=== PATIENT | female | born 1975 | race Caucasian/White ===

== ENCOUNTER 2018-03-18 07:54 | Outpatient (RCR) | payer BC | END 2018-06-16 | disposition home or self-care (01) | LOC: CARD 07:54 | PROVIDERS: ATTEND Physician Assistant | DX: R00.2 Palpitations (principal); R42 Dizziness and giddiness | CPT/HCPCS: 93225; 93226 ==

== ENCOUNTER → 2018-04-17 | Outpatient (CLI) | payer BC ==
[2018-04-17 15:46] VITALS: BP 123/77
--- NOTE | 2018-04-17 15:46 | Cardiology Stress Test Report ---
Stress Test Report Date of Procedure/Referring: Date of Procedure: Apr 17, 2018 PCP Jarek Romero MD Admitting Physician Trever Mario MD Indications: chest pain Baseline Heart Rate: 95 Baseline Blood Pressure: Blood Pressure Systolic: 123 Blood Pressure Diastolic: 77 Baseline EKG: Baseline EKG: Normal Sinus Rhythm Summary/Conclusion: Summary: In summary, the patient started exercising with a baseline heart rate, blood pressure and EKG mentioned above Patient was able to exercise for a total of 6 minutes on Javier protocol, 7.3 METs Maximum heart rate 168 Maximum blood pressure 207/76 Stress EKG Minimal nondiagnostic changes Recovery EKG Return to baseline Conclusion: 1. Good exercise tolerance for a total of 6 minutes on Javier protocol, 7.3 METs , achieving 94 percent of maximum expected heart rate 2. Minimal nondiagnostic EKG changes with exercise returned to baseline during recovery 3. No arrhythmia was noted 4. Hypertensive response to exercise JAREK ROMERO MD Apr 17, 2018 15:46
== END ==
LOC: CARD 13:03
PROVIDERS: ATTEND Internal Medicine Cardiovascular Disease
DX: R07.89 Other chest pain (principal); I47.1 Supraventricular tachycardia; I49.3 Ventricular premature depolarization; I49.1 Atrial premature depolarization; Z83.438 Family history of other disorder of lipoprotein metabolism and other lipidemia
CPT/HCPCS: 93017

== ENCOUNTER 2018-04-30 20:38 | Outpatient (CLI) | payer BC | END 2018-05-01 06:10 | disposition home or self-care (01) | LOC: SLEEP 20:38 | PROVIDERS: ATTEND Internal Medicine Cardiovascular Disease | DX: G47.33 Obstructive sleep apnea (adult) (pediatric) (principal) | CPT/HCPCS: 95810 ==

== ENCOUNTER → 2018-12-27 | Outpatient (CLI) | payer BC ==
--- NOTE | 2018-12-27 15:18 | Diagnostic Imaging Report ---
PROCEDURE: US Non-ob pelvis comp/trans. INDICATION: Pelvic pain. TECHNIQUE: Multiple real time mccloud scale sonographic images were obtained of the pelvis transabdominally and endovaginally. CORRELATION STUDY: None. FINDINGS: UTERUS: 10.6 x 6.9 x 5.8 cm. The uterus appears unremarkable. ENDOMETRIUM: 11 mm. There is somewhat heterogeneous echotexture about the endometrium, nonspecific. RIGHT OVARY: 3.1 x 3.7 x 2.1 cm. LEFT OVARY: 3.2 x 2.4 x 2.3 cm. A few scattered small follicles are present. No definitive dominant concerning mass. Normal blood flow to the ovaries. No significant free pelvic fluid. IMPRESSION: 1. Endometrial thickness is within normal limits for a premenopausal patient. However, this has a somewhat heterogeneous echotexture. Consideration for follow-up imaging in a different phase of the menstrual cycle would be recommended. 2. Likely physiologic ovarian follicles. Dictated by: Dictated on workstation # [id number]
== END ==
LOC: RAD 10:31
PROVIDERS: ATTEND Anesthesiology Pain Medicine
DX: R10.2 Pelvic and perineal pain (principal)
CPT/HCPCS: 76830; 76856

== ENCOUNTER → 2020-01-08 | Outpatient (CLI) | payer BC | LOC: LABNPT 05:19 | PROVIDERS: ATTEND Internal Medicine | DX: J02.9 Acute pharyngitis, unspecified (principal); Z20.828 Contact with and (suspected) exposure to other viral communicable diseases | CPT/HCPCS: 87635 ==

== ENCOUNTER → 2020-01-19 | Outpatient (CLI) | payer BC | LOC: LABNPT 08:04 | PROVIDERS: ATTEND Internal Medicine | DX: Z20.828 Contact with and (suspected) exposure to other viral communicable diseases (principal) | CPT/HCPCS: 87635 ==

== ENCOUNTER → 2020-10-08 | Outpatient (CLI) | payer BC ==
--- NOTE | 2020-10-08 11:40 | Diagnostic Imaging Report ---
PROCEDURE: Pelvic comp/transvaginal sonogram. TECHNIQUE: Complete transabdominal and transvaginal pelvic ultrasound was performed. In addition, limited pelvic Doppler was performed. INDICATION: Secondary dysmenorrhea. The uterus measures 10.3 x 6.3 x 9.4 cm. Endometrium is 7 mm in thickness. Diffuse myometrial heterogeneity is seen. There appear to be multiple fibroids present. Probable fibroid in the right fundal region measures 2.2 x 2.4 cm. Left-sided fundal fibroid measures approximate 4 cm in diameter. Left uterine body fibroid is 1.8 cm. Right ovary measures 3.9 x 2.7 x 2.3 cm and left ovary measures 3.6 x 2.2 x 3.1 cm. There is blood flow to both ovaries. No adnexal mass or free fluid is detected. IMPRESSION: 1. Fibroid uterus. The study is otherwise unremarkable. Dictated by: Dictated on workstation # [id number]
--- NOTE | 2020-10-11 09:01 | Diagnostic Imaging Report ---
INDICATION: Routine screening. COMPARISON: No prior mammograms are available for comparison. TECHNIQUE: 2D and 3D bilateral screening mammography was performed with CAD. FINDINGS: Both breasts are heterogeneously dense, limiting the sensitivity of mammography. There are benign calcifications in the right breast. No mass or malignant-appearing microcalcifications are seen. The axillae are unremarkable. IMPRESSION: No mammographic features suspicious for malignancy are identified. ACR BI-RADS Category 2: Benign findings. Result letter will be mailed to the patient. Note: At least 10% of breast cancer is not imaged by mammography. Dictated by: Dictated on workstation # [id number]
== END ==
LOC: RAD 10:01
PROVIDERS: ATTEND Obstetrics & Gynecology
DX: Z12.31 Encounter for screening mammogram for malignant neoplasm of breast (principal); D25.9 Leiomyoma of uterus, unspecified
CPT/HCPCS: 76830; 76856; 77063; 77067

== ENCOUNTER → 2021-10-10 | Outpatient (CLI) | payer BC ==
--- NOTE | 2021-10-10 12:56 | Diagnostic Imaging Report ---
INDICATION: Routine screening. COMPARISON: 10/08/2020. TECHNIQUE: 2D and 3D bilateral screening mammography was performed with CAD. FINDINGS: Both breasts are heterogeneously dense, limiting the sensitivity of mammography. A lobulated density has developed in the upper and outer aspect of the left breast. This could potentially represent a cyst. Additional views are recommended. The right breast is unremarkable. No malignant-appearing microcalcifications are seen. The axillae are unremarkable. IMPRESSION: Left breast density. Additional views are recommended for further evaluation. If this persists, ultrasound will be necessary as well. ACR BI-RADS Category 0: Incomplete. (Needs additional imaging evaluation). Result letter will be mailed to the patient. Note: At least 10% of breast cancer is not imaged by mammography. Dictated by: Dictated on workstation # [id number]
== END ==
LOC: RAD 11:15
PROVIDERS: ATTEND Obstetrics & Gynecology
DX: Z12.31 Encounter for screening mammogram for malignant neoplasm of breast (principal); N64.89 Other specified disorders of breast
CPT/HCPCS: 77063; 77067

== ENCOUNTER → 2021-10-13 | Outpatient (CLI) | payer BC ==
--- NOTE | 2021-10-13 15:35 | Diagnostic Imaging Report ---
INDICATION: Left breast density. Patient presents for additional views. Correlation is made to screening study from 10/10/2021 Unilateral left 2-D and 3-D diagnostic mammography was performed with CAD. This includes spot compression CC and ML views as well as conventional 90 degree lateral views. Additional views show persistent lobulated density in the upper outer left breast approximately 8 cm from the nipple. This may represent a cluster of cysts. No other masses are seen. IMPRESSION: Lobulated density upper outer left breast 8 cm from the nipple. Further evaluation with ultrasound is recommended and will be performed today. ACR BI-RADS Category 0: Incomplete. (Needs additional imaging evaluation). Result letter will be mailed to the patient. Note: At least 10% of breast cancer is not imaged by mammography. BI-RADS 0 Dictated by: Dictated on workstation # [id number]
--- NOTE | 2021-10-13 16:06 | Diagnostic Imaging Report ---
INDICATION: Abnormal mammogram, left breast density. Correlation is made with the diagnostic mammogram earlier the same day and the screening mammogram from 10/10/2021. Sonographic interrogation upper outer left breast was performed. There is a septated cystic mass at the 1 o'clock location, 6 cm from the nipple measuring 1.6 x 0.8 x 1.0 cm. No internal vascularity is seen. This corresponds in size, shape and location to the density noted mammographically. No other masses are seen. IMPRESSION: A septated cystic mass 1 o'clock location left breast, 6 cm from the nipple, likely accounting for the mammographic density. Followup left mammogram and left breast ultrasound in 6 months is recommended to confirm stability or resolution. ACR BI-RADS Category 3: Probably benign findings. Result letter will be mailed to the patient. Note: At least 10% of breast cancer is not imaged by mammography. BI-RADS Category 3 Dictated by: Dictated on workstation # [id number]
== END ==
LOC: RAD 13:15
PROVIDERS: ATTEND Obstetrics & Gynecology
DX: N60.02 Solitary cyst of left breast (principal)
CPT/HCPCS: 76642; 77065; G0279

== ENCOUNTER → 2022-04-05 | Outpatient (CLI) | payer BC ==
--- NOTE | 2022-04-05 16:25 | Diagnostic Imaging Report ---
INDICATION: Six-month followup left breast cyst. COMPARISON: Correlation is made with the prior mammograms from 10/10/2021 and 10/08/2020. TECHNIQUE: Unilateral left 2D and 3D diagnostic mammography was performed. FINDINGS: The left breast remains heterogeneously dense, limiting the sensitivity of mammography. The lobulated density in the upper outer left breast at mid depth has resolved. No new mass is detected. No malignant-appearing microcalcifications are seen. The left axilla is unremarkable. IMPRESSION: Resolution of the previously noted lobulated density in the upper outer left breast is consistent with resolution of the previously noted cyst. No new abnormality is seen. The patient may return to routine annual screening mammography. ACR BI-RADS Category 1: Negative. Result letter will be mailed to the patient. Note: At least 10% of breast cancer is not imaged by mammography. Dictated on workstation # [id number]
== END ==
LOC: RAD 13:20
PROVIDERS: ATTEND Obstetrics & Gynecology
DX: R92.8 Other abnormal and inconclusive findings on diagnostic imaging of breast (principal)
CPT/HCPCS: 77065; G0279